=== PATIENT | male | born 1950 | race Caucasian/White ===

== ENCOUNTER 2018-07-14 11:28 | Emergency (ER) | payer OTHER, BC ==
--- NOTE | 2018-07-14 12:47 | EDPHY ---
H & P Stated Complaint: Fell off ladder and hurt L elbow Time Seen by Provider: 07/14/18 12:07 HPI/ROS: HPI: This is a 68-year-old male who presents with Chief Complaint: Fell off ladder and hurt L elbow Location: Left elbow Quality: Injury Duration: Prior to arrival Signs and Symptoms: No bleeding, no radiation, no numbness, no weakness, no tingling, no incontinence, no decreased range of motion,+ swelling, + pain, no fever Timing: Gradual onset Severity: Moderate Context: Patient is right-hand dominant, accidentally fell off ladder when he lost his balance prior to arrival and landed on his left elbow. Denies LOC/head injury/neck pain/dizziness/nausea/vomiting/amnesia. Takes aspirin daily. Patient reports that he continued to portal Dexetra decorations for the next hour. He then noticed left elbow swelling approximately 1-2 hours after the injury. Reports mild decreased range of motion with minimal pain. Modifying Factors: None Comment: ROS: A comprehensive 10 system review of systems is otherwise negative aside from elements mentioned in the history of present illness. MEDICAL/SURGICAL/SOCIAL HISTORY: Medical history: hypercholesteremia, pituitary adenoma Surgical history: Denies Social history: Nonsmoker. Retired psychiatrist CONSTITUTIONAL: Well-developed, well-nourished elderly white male, awake and alert, no obvious distress HEENT: Atraumatic and normocephalic. NECK: supple, no midline tenderness, flexion 45 degrees, extension 45 degrees, right and left lateral flexion 45 degrees. No meningismus. Cardiovascular: Normal S1/S2, regular rate, regular rhythm, without murmur rub or gallop. PULMONARY/CHEST: Symmetrical and nontender. no crepitus. Clear to auscultation bilaterally. Good air movement. No accessory muscle usage. ABDOMEN: Soft, nondistended, nontender, no ecchymosis. PELVIC: no pain with rocking; bilateral hips flexion 125 degrees, extension 30 degrees, with no pain internal rotation and no pain external rotation. BACK: No midline tenderness, no paraspinous spasm, deep tendon reflexes 2/2, no pain with straight leg raise, No foot drop. Achilles reflexes are equal bilaterally. Able to walk on heels and toes without difficulty. EXTREMITIES: 2/2 pulses, strength 5/5, left ELBOW: Full extension to 180, flexion to 150, no tenderness over medial epicondyle, no tenderness over lateral epicondyle, moderate effusion. DIP/PIP/MCP flexion/extension intact with good light touch sensation. no deformities, no clubbing, no cyanosis or edema. NEUROLOGICAL: no focal neuro deficits. GCS 15. Light touch sensation intact. SKIN: Warm and dry, no erythema. no rash. Good capillary refill. Source: Patient Exam Limitations: No limitations - Personal History Current Tetanus Diphtheria and Acellular Pertussis (TDAP): Yes - Medical/Surgical History Other PMH: cholesterol. pituitary adenoma - Social History Smoking Status: Former smoker Constitutional: Initial Vital Signs Temperature (C) 36.7 C 07/14/18 11:36 Heart Rate 71 07/14/18 11:36 Respiratory Rate 16 07/14/18 11:36 Blood Pressure 154/97 H 07/14/18 11:36 O2 Sat (%) 97 07/14/18 11:36 O2 Delivery Mode Room Air Allergies/Adverse Reactions: No Known Allergies Allergy (Verified 07/14/18 11:29) Home Medications: Medication Instructions Recorded Aspirin EC [Aspirin EC 81 mg (*)] 07/14/18 Cabergoline [Dostinex (*)] 0.5 mg PO 07/14/18 Cephalexin [Keflex (*)] 500 mg PO TID #21 cap 07/14/18 Rosuvastatin Calcium [Crestor 20mg 20 mg PO DAILY 07/14/18 (*)] Medical Decision Making - Diagnostics Imaging Results: Imaging Impressions Elbow X-Ray 07/14/18 11:50 Impression: 1. No acute fracture or effusion. Moderate osteoarthritis. 2. Large posterior hematoma versus fluid-filled olecranon bursa. Procedures: Procedure: Hematoma drainage. The patient's hematoma was located on the left elbow. I obtained verbal consent from the patient to drain the hematoma who was informed about the possibility of bleeding and pain. The abscess was incised with 18 gauge needle and a 10 mL of dark blood was expressed. I irrigated the wound and placed clean sterile dressing. The patient tolerated the procedure well. The procedure was performed by myself. Procedure: Splint placement. A left sling was applied. After application of the splint I returned and re- examined the patient. The splint was adequately immobilizing the joint and distal to the splint the patient's circulation and sensation was intact. ED Course/Re-evaluation: Vital signs reviewed and stable upon arrival. Based on nexus protocol, recommendation to obtain head CT imaging due to head trauma and on aspirin. Patient and politely decline. No LOC. No neurological deficits. Hematoma was expressed approximately 10 mL from the elbow. Pressure dressing and sling applied X-ray my read shows no fracture. Placed on Keflex for antibiotic prophylaxis No signs of neurovascular compromise/tenting of skin/compartment syndrome/ extremities and joints examined above and below area of concern and are neurovascularly intact. Differential Diagnosis: Differential diagnosis includes but is not limited to supracondylar fracture, radial fracture, ulnar fracture, effusion, hematoma. Departure - Departure Disposition: Home, Routine, Self-Care Clinical Impression: Injury of left elbow region Traumatic hematoma of left elbow Qualifiers: Encounter type: initial encounter Qualified Code(s): S50.02XA - Contusion of left elbow, initial encounter Condition: Good Instructions: Hematoma (ED), How to Use a Sling (ED) Additional Instructions: Keep the dressing dry and in place for 48 hours. After 48 hours, you may remove the dressing; wash the site daily with mild soap and water; then pat dry. Apply topical antibiotic ointment and clean sterile dressing daily until fully healed. Wear sling for the next 48 hr to limit use of left upper extremity. Take Tylenol 650 mg every 4 hours and/or Ibuprofen 600 mg every 8 hours with food as needed for pain. Take antibiotic as directed. Apply ice for 30 minutes at a time; 2-3 times per day for the next 1-2 days. Follow up with Orthopedics in 5-7 days if symptoms persist at which time they will evaluate and recommend with you if conservative management versus further therapy is indicated. The x-rays obtained in the emergency department today demonstrate no evidence of an obvious fracture. Sometimes fractures are not obvious on the initial set of x-rays performed in the ED. For this reason, you should have repeat x-rays performed in 7-10 days if you are having any pain exclude the possibility of an occult fracture. Referrals: Serge Recinos MD [Medical Doctor] - As per Instructions Prescriptions: Cephalexin [Keflex (*)] 500 mg PO TID #21 cap
[2018-07-14] MEDS ORDERED: CEPHALEXIN 500 MG CAP PO ONE (12:48)
[2018-07-14 13:11] VITALS: BP 135/88
== END 2018-07-14 13:08 | disposition home or self-care (01) ==
PROC: 0H9EXZZ Drainage of Left Lower Arm Skin, External Approach (ICD-10-PCS; principal; 2018-07-14)
DX: S50.02XA Contusion of left elbow, initial encounter (principal); W11.XXXA Fall on and from ladder, initial encounter; E78.5 Hyperlipidemia, unspecified; Z87.891 Personal history of nicotine dependence

== ENCOUNTER → 2018-10-25 | Outpatient (CLI) | payer OTHER, BC | LOC: BHFA 09:15 | PROVIDERS: ATTEND Internal Medicine Cardiovascular Disease | DX: R01.1 Cardiac murmur, unspecified (principal) ==